=== PATIENT | male | born 1960 | race African-American/Black ===

== ENCOUNTER 2019-12-11 11:46 | Emergency (ER) | payer OTHER ==
[2019-12-11 11:56] VITALS: BP 170/68; PULSE 102; TEMP 98.6; BMI 29.7
--- NOTE | 2019-12-11 12:02 | PDOC ---
History of Present Illness - General Chief Complaint: Back Pain Stated Complaint: LOWER BACK PAIN Time Seen by Provider: 12/11/19 12:02 History Source: Patient Exam Limitations: No Limitations - History of Present Illness Initial Comments: 12/11/19 12:02 [id number] with h/o DM p/w low back pain and tingling radiating down the back of both thighs to his mid-calves. He notes this has been going on for the past week, and he awakened with the symptoms immediately after sleeping overnight on a rolled up towel which he believed would help him with a muscle injury sustained a month ago from heavy lifting. He notes having tried Tylenol for the new low back pain, with minimal effect, but last dose about 2 hours [employer] [employer] to the ED. He denies any new f/c/n/v/d/c, abdominal pain, chest pain, neck pain, headache, vision changes, paralysis or weakness of any part of his body. Past History - Medical History Allergies/Adverse Reactions: Allergies Allergy/AdvReac Type Severity Reaction Status Date / Time No Known Allergies Allergy Verified 12/11/19 12:31 Home Medications: Ambulatory Orders Ibuprofen [Motrin -] 600 mg PO TID PRN #21 tablet 12/11/19 Lidocaine 5% Patch [Lidoderm -] 1 patch TP DAILY PRN #7 patch 12/11/19 Methocarbamol [Robaxin-750] 750 mg PO QID PRN #20 tablet 12/11/19 CVA: No COPD: No - Immunization History Immunization Up to Date: Yes - Psycho-Social/Smoking History Smoking History: Never smoked Have you smoked in the past 12 months: No Information on smoking cessation initiated: No - Substance Abuse Hx (Audit-C & DAST Scrn) How often the patient has a drink containing alcohol: Never Score: In Men: 4 or > Positive; In Women: 3 or > Positive: 0 Screen Result (Pos requires Nsg. Audit-10AR): Negative In the last yr the pt used illegal drug/Rx for NonMed reason: No Score: Yes response is considered Positive: 0 Screen Result (Positive result requires Nsg. DAST-10): Negative Review of Systems - Review of Systems Able to Perform ROS?: Yes Comments:: 12/11/19 12:11 GEN: no fever, chills, malaise, or generalized weakness HEENT: no ear pain, congestion, sore throat, vision change, or eye pain CV: no chest pain, palpitations, lightheadedness, syncope, or edema RESP: no SOB, wheezing, or cough GI: no abdominal pain, nausea, vomiting, diarrhea, constipation, or rectal bleed : no dysuria, hematuria, or discharge MSK: low back pain, low back/thigh numbness NEURO: no headache, vertigo, tingling, or focal weakness PSYCH: no SI, HI, or behavior change SKIN: no jaundice, rash, lesions, or unexplained bruises ROS otherwise negative except as noted in HPI *Physical Exam - Vital Signs Last Vital Signs Temp Pulse Resp BP Pulse Ox 98.6 F 102 H 18 170/68 99 12/11/19 11:48 12/11/19 11:48 12/11/19 11:48 12/11/19 11:48 12/11/19 11:48 - Physical Exam 12/11/19 13:12 GENERAL: very pleasant, well-appearing, A/Ox4, no distress, answers questions appropriately, cheerful HEENT: PERRLA, EOMI, moist mucous membranes NECK/BACK: no midline ttp, no spinal step-off or deformity, no hematoma, full ROM, no paraspinous ttp, neck supple, but there is mild tenderness to compression of the sciatic nerves in the superior medial gluteal area which reproduces chief complaint exactly CARDIOVASCULAR: regular rate/rhythm, no MGR, strong peripheral pulses, capillary refill <2 seconds, extremities wwp, no edema LUNGS/RESPIRATORY: no respiratory distress, CTAB GI/ABDOMEN: symmetric [id number], normoactive BS, soft, no ttp, no midline pulsatile masses : no CVA tenderness MSK/EXTREMITIES: no muscle atrophy, no acute deformity SKIN: warm and dry, no pallor, no jaundice, no rash, no pathologic-appearing bruising, no skin breakdown, no cuts, no lesions NEUROLOGICAL: GCS 15, CN II-XII grossly intact, 5/5 strength proximally and distally, no facial droop Medical Decision Making - Medical Decision Making 12/11/19 13:00 [id number] with h/o DM p/w mid upper-back pain x1 month since lifting his disabled neighbor in her bed, now with 1 week of low back pain and leg numbness which occurred after sleeping overnight on a rolled-up towel under his low back which a friend told him would help with the mid-upper back pain. The patient has no h/o aortic aneurysm or dissection, no h/o osteoporosis or prolonged glucocorticoid or anticoagulant use, no h/o IVDU no recent bacterial infections. No h/o cancer and no significant risk factors for cancer. The patient reports no recent significant trauma other than lifting his neighbor in bed, no weight loss, night sweats, swollen lymph nodes, fever, pain worsening with rest or at night, bowel or bladder dysfunction, or associated syncope, nausea, or diaphoresis. The pain is not severe or progressive, has been present for <6 weeks, and is not associated with thoracic or abdominal pain. Initial Vital Signs Temp Pulse Resp BP Pulse Ox 98.6 F 102 H 18 170/68 99 12/11/19 11:48 12/11/19 11:48 12/11/19 11:48 12/11/19 11:48 12/11/19 11:48 Most likely muscle strain/sprain in combination with DDD and bulging resulting in sciatic nerve compression. There is no concern for infectious process, spinal cord impingement (patient denies red flag symptoms as above), aortic pathology, or other more serious etiology. Patient's primary complaint is the low back pain and leg numbness, states the upper back pain has improved and has been minimal for days. I discuss the possibility of imaging with the patient, we weight the pros and cons together, and he would like to have L spine CT which is appr opriate. Provider Orders Category Date Time Status LUMBAR SPINE CT W/O CONTRAST [CT] Stat CT Scan 12/11/19 12:13 Completed Ibuprofen [Motrin -] Medication 12/11/19 12:15 Discontinued 600 mg PO ONCE ONE Lidocaine 5% Patch [Lidoderm Patch -] Medication 12/11/19 12:15 Discontinued 1 patch TP ONCE ONE Lidocaine Patch Removal [Lidoderm Patch Removal] Medication 12/11/19 22:00 Active 1 each MC DAILY@2200 Methocarbamol [Robaxin -] Medication 12/11/19 12:32 Discontinued 1,000 mg .ROUTE .STK-MED ONE Methocarbamol [Robaxin -] Medication 12/11/19 12:15 Discontinued 750 mg PO NOW ONE Medications Generic Name Dose Route Start Last Admin Trade Name Freq PRN Reason Stop Dose Admin Miscellaneous 1 each 10/02/20 22:00 Lidoderm Patch Removal MC DAILY@2200 JAYDE Discontinued Medications Generic Name Dose Route Start Last Admin Trade Name Leonor PRN Reason Stop Dose Admin Ibuprofen 600 mg 12/11/19 12:15 12/11/19 12:40 Motrin - PO 12/11/19 12:16 600 mg ONCE ONE Administration Lidocaine 1 patch 12/11/19 12:15 12/11/19 12:40 Lidoderm Patch - TP 12/11/19 12:16 1 patch ONCE ONE Administration Methocarbamol 750 mg 12/11/19 12:15 12/11/19 12:41 Robaxin - PO 12/11/19 12:16 750 mg NOW ONE Administration Methocarbamol Confirm 12/11/19 12:32 Robaxin - Administered 12/11/19 12:33 Dose 1,000 mg .ROUTE .[employer] ONE CT/LUMBAR SPINE CT W/O CONTRAST Evaluate for acute back pain with sciatica CT scan of the lumbar spine without intravenous contrast. Coronal and sagittal reconstruction images were obtained. No prior is available for comparison. There is very minimal anterolisthesis of L4 over L5, likely degenerative. There is cortical interruption in superior aspect of L1 vertebral body with mild compression of its superior endplate, mainly on the right consistent with an acute fracture. The rest of the vertebral bodies are well aligned without gross evidence of a fracture. At L3-L4 level there is minimal central disc bulge without nerve root impingement. At L4-L5 level there is mild degenerative disc disease and minimal vacuum phenomena with mild broadbase disc bulge reaching and possibly minimally impinging right L4 nerve root. Moderate bilateral facet hypertrophy. L5-S1 moderate to marked right and moderate left facet hypertrophy. No paraspinal soft tissue abnormality is seen. Note is made of a nonobstructing stone in the left kidney measuring 6 mm. Note is made of bridging osteophytes along anterior margin of the sacroiliac joint, bilaterally IMPRESSION: Mild acute compression fracture of L1 superior endplate, mainly on the right without compromise of the spinal canal. Multilevel minimal and mild disc bulge, as descr ibed above reaching and possibly slightly impinging right L4 nerve root at L4-L5 level. Minimal anterolisthesis of L4 over L5, likely degenerative 6 mm nonobstructing left renal stone The patient's pain is well controlled. I have a discussion with him about the CT findings and he understands there is a mild compression fracture and that although it is unclear when exactly this happened, it was likely within the past month. I inform him that even though this mild vertebral fracture is present, his spinal cord is not being compressed. He understands this is a stable fracture and what that means. He is comfortable going home and managing with outpatient medications. The patient does not have h/o osteoporosis or any significant osteoporosis on CT and thus he is appropriate for Robaxin at home as well as Tylenol/Motrin and lidocaine patches, all for his low back pain. He has a cane with him and uses it to ambulate but otherwise does not require assistance and has steady gait. He understands he need to f/u with his PCP and orthopedist on Saturday, and he will call the ortho clinic here at [facility] to make that appointment. On last exam, pain is well controlled and exam is benign. Return precautions are discussed including bowel/bladder incontinence/retention, abdominal pain, severe back pain which is worsening or uncontrollable with pain medications prescribed, new neurologic symptoms other than the sciatica, or any other emergency symptoms. Discharge - Discharge Information Problems reviewed: Yes Clinical Impression/Diagnosis: Lower back pain Qualifiers: Chronicity: acute Back pain laterality: bilateral Sciatica presence: with sciatica Sciatica laterality: bilateral sciatica Qualified Code(s): M54.42 - Lumbago with sciatica, left side Compression fracture of L1 lumbar vertebra Qualifiers: Encounter type: initial encounter Qualified Code(s): S32.010A - Wedge compression fracture of first lumbar vertebra, initial encounter for closed fracture Condition: Stable Disposition: HOME - Admission No - Additional Discharge Information Prescriptions: Lidocaine 5% Patch [Lidoderm -] 1 patch TP DAILY PRN #7 patch PRN Reason: Back Pain Ibuprofen [Motrin -] 600 mg PO TID PRN #21 tablet PRN Reason: Back Pain Methocarbamol [Robaxin-750] 750 mg PO QID PRN #20 tablet PRN Reason: Back Pain - Follow up/Referral Referrals: Naima Berumen MD [Non Staff, Medical] - Linden Armstrong MD [Staff Physician] - Barrett Esquivel MD [Staff Physician] - - Patient Discharge Instructions Patient Printed Discharge Instructions: DI for Low Back Pain Additional Instructions: You were seen in the ER for lower back pain and thigh/leg numbness. Because this has been going on for some time, we did a CT scan of the lumbar spine, which showed lumbar disc bulging and a compression fracture which is mild and stable. You do not need to be admitted to the hospital for it. Your symptoms improved with the medications we gave you in the ER. After our assessment, we do not believe you are having a medical emergency at this time, and we believe you are safe to go home. 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 Please follow up with your primary care provider in 1-3 days. Also follow up with the orthopedist on Saturday for your compression fracture. Call their clinic as soon as possible, tell them you were seen in the ER, and tell them you need an appointment. If you have any new or worsening symptoms please come back to the ER at any time (24 hours a day), especially for fever, new numbness new tingling, new weakness, new urinary or bowel incontinence or retention, or other new symptoms. If you are having severe or life threatening symptoms, or symptoms that make it unsafe to drive or have someone drive you, please call 911. Robaxin 750 mg tablets take one tablet up to four times a day as needed. Lidocaine patch 5% apply to most painful area along spine once a day as needed, then remove after 12h. Motrin 600 mg tablets take one tablet up to three times a day as needed. Also, you can take Tylenol 650 mg every 6 hours as needed. - Post Discharge Activity
[2019-12-11] MEDS ORDERED: IBUPROFEN 600 MG TABLET (FP) PO ONE (12:15)
[2019-12-11] MEDS ORDERED: METHOCARBAMOL 750 MG TAB PO ONE (12:15)
[2019-12-11] MEDS ORDERED: LIDOCAINE 5% TOPICAL PATCH TP ONE (12:15)
[2019-12-11] MEDS ORDERED: METHOCARBAMOL 500 MG TABLET ONE (12:32)
[2019-12-11] MEDS ORDERED: LIDOCAINE PATCH REMOVAL MC SCH (22:00)
== END 2019-12-11 15:03 | disposition home or self-care (01) ==
LOC: FER 11:46
DX: M54.42 Lumbago with sciatica, left side (principal); S32.010A Wedge compression fracture of first lumbar vertebra, initial encounter for closed fracture
CPT/HCPCS: 72131-TC; 99284-25